=== PATIENT | male | born 1980 | race Caucasian/White ===

== ENCOUNTER 2019-04-17 20:00 | Emergency (ER) | payer OTHER ==
[2019-04-17 20:46] LABS: ANION GAP 14.8 mmol/L (5-15); CHLORIDE,CL 100 mmol/L (98-115); SODIUM,NA 139 mmol/L (136-145)
[2019-04-17] MEDS ORDERED: Sodium Chloride 0.9% 1,000 ML IV ONE (20:50)
--- NOTE | 2019-04-17 20:57 | EDM.PDOC ---
ED HPI GENERAL MEDICAL PROBLEM - General Chief Complaint: Abdominal Pain Stated Complaint: PAIN Time Seen by Provider: 04/17/19 20:49 Source of Information: Reports: Patient, Significant Other History Limitations: Reports: No Limitations - History of Present Illness INITIAL COMMENTS - FREE TEXT/NARRATIVE: Patient presents with LLQ pain that started about 10 hours ago while in classes for [employer]. It began abruptly with sharp pain and an urge to defecate. He had a BM which somewhat relieved the pain. He had the same thing about 8 times through the day each time with the urge to defecate and the feeling that he might soil himself with diarrhea but stool was always well formed and no blood visible. The last BM was about 3 hours ago when he arrived home from classes. He says the pain at its worst was 8-9/10 for 30-60 seconds about 10-11 times total through the day (usually with the urge to defecate) but then subsided to about 3. He denies any similar symptoms in the past. Also denies any Crohn's, colitis, hernias or abdominal surgeries. Appetite was fairly good but a little decreased. He didn't eat breakfast but was hungry then. He was thirsty today but didn't drink enough; about 4 cups in all. Left Lower Abdomen Pain Score (Numeric/FACES): 3 - Related Data Allergies Allergy/AdvReac Type Severity Reaction Status Date / Time No Known Allergies Allergy Verified 04/17/19 20:08 Past Medical History - Past Health History Medical/Surgical History: Denies Medical/Surgical History - Past Surgical History Musculoskeletal Surgical History: Reports: Shoulder Surgery Social & Family History - Tobacco Use Smoking Status *Q: Never Smoker Second Hand Smoke Exposure: No - Caffeine Use Caffeine Use: Reports: Coffee, Energy Drinks, Soda - Recreational Drug Use Recreational Drug Use: No - Living Situation & Occupation Living situation: Reports: , with Family Occupation: Employed ED ROS GENERAL - Review of Systems Review Of Systems: See Below Constitutional: Denies: Fever, Chills, Weakness HEENT: Denies: Throat Pain, Vision Change Respiratory: Reports: Cough (recovering from a cough/cold). Denies: Shortness of Breath Cardiovascular: Denies: Chest Pain, Lightheadedness, Syncope GI/Abdominal: Reports: Abdominal Pain, Nausea (a couple times when he stood up) . Denies: Constipation, Diarrhea, Vomiting : Denies: Dysuria, Flank Pain, Pain Musculoskeletal: Reports: Foot Pain (plantar fasciitis). Denies: Neck Pain, Shoulder Pain, Arm Pain Skin: Denies: Cyanosis, Jaundice, Mottled, Pallor, Diaphoresis Neurological: Denies: Confusion, Dizziness, Headache, Seizure, Syncope, Trouble Speaking, Difficulty Walking Psychiatric: Denies: Agitation, Anxiety, Confusion ED EXAM, GI/ABD - Physical Exam Exam: See Below Exam Limited By: No Limitations General Appearance: Alert, WD/WN, No Apparent Distress Eyes: Bilateral: Normal Appearance, EOMI Ears: Normal External Exam, Hearing Grossly Normal Nose: Normal Inspection, No Blood Throat/Mouth: Normal Inspection, Normal Lips, Normal Voice, No Airway Compromise Head: Atraumatic, Normocephalic Neck: Normal Inspection, Full Range of Motion Respiratory/Chest: No Respiratory Distress, Lungs Clear, Normal Breath Sounds, No Accessory Muscle Use Cardiovascular: Regular Rate, Rhythm, No Murmur GI/Abdominal Exam: Soft, No Organomegaly, No Distention, No Abnormal Bruit, Tender (LLQ quite tender to light palpation). No: Hernia, Mass Back Exam: Normal Inspection, Full Range of Motion. No: CVA Tenderness (L), CVA Tenderness (R) Extremities: Normal Inspection, Normal Range of Motion Neurological: Alert, Oriented, Normal Cognition, No Motor/Sensory Deficits Psychiatric: Normal Affect, Normal Mood Skin Exam: Warm, Dry, Intact, Normal Color, No Rash Course - Vital Signs Last Recorded V/S: Last Vital Signs Temp 98.3 F 04/17/19 20:00 Pulse 80 04/17/19 22:21 Resp 18 04/17/19 22:21 BP 129/64 04/17/19 22:21 Pulse Ox 96 04/17/19 22:21 - Orders/Labs/Meds Orders: Active Orders 24 hr Category Date Time Status Abdomen Pelvis w Cont [CT] Stat Exams 04/17/19 20:50 Ordered Labs: Laboratory Tests 04/17/19 04/17/19 04/17/19 Range/Units 20:15 20:15 21:10 WBC 13.65 H (5.00-10.00) 10^3/uL RBC 4.80 (4.50-6.00) 10^6/uL Hgb 14.5 (13.0-17.0) g/dL Hct 41.8 (40.0-52.0) % MCV 87.1 (82.0-92.0) fL MCH 30.2 (27.0-31.0) pg MCHC 34.7 (32.0-36.0) g/dL RDW 12.2 (11.5-14.5) % Plt Count 290 (150-400) 10^3/uL MPV 9.4 (7.4-10.4) fL Immature Gran % (Auto) 0.1 (0.0-5.0) % Neut % (Auto) 72.6 H (50.0-70.0) % Lymph % (Auto) 18.3 L (20.0-40.0) % [place] % (Auto) 7.5 (2.0-8.0) % Eos % (Auto) 1.2 (1.0-3.0) % Baso % (Auto) 0.3 (0.0-1.0) % Immature Gran # (Auto) 0.02 (0.00-0.50) 10^3/uL Neut # (Auto) 9.90 H (2.50-7.00) 10^3/uL Lymph # (Auto) 2.50 (1.00-4.00) 10^3/uL [place] # (Auto) 1.03 H (0.10-0.80) 10^3/uL Eos # (Auto) 0.16 (0.10-0.30) 10^3/uL Baso # (Auto) 0.04 (0.00-0.10) 10^3/uL Sodium 139 (136-145) mmol/L Potassium 3.7 (3.3-5.3) mmol/L Chloride 100 (98-115) mmol/L Carbon Dioxide 27.9 (21.0-32.0) mmol/L Anion Gap 14.8 (5-15) mmol/L BUN 16 (6-25) mg/dL Creatinine 1.22 H (0.51-1.17) mg/dL Est Cr Clr Drug Dosing 96.39 mL/min Estimated GFR (MDRD) > 60 mL/min Glucose 87 (75 - 99) mg/dL Calcium 8.9 (8.7-10.3) mg/dL Total Bilirubin 0.8 (0.2-1.0) mg/dL AST 18 (15-37) U/L ALT 36 (12-78) U/L Alkaline Phosphatase 60 (46-116) IU/L Total Protein 7.7 (6.4-8.2) g/dL Albumin 4.07 (3.00-4.80) g/dL Lipase 163 (73-393) U/L Specimen Type Urincc Urine Color Yellow (YELLOW) Urine Appearance Clear (CLEAR) Urine pH 5.5 (5.0-9.0) Ur Specific [place] 1.025 (1.005-1.030) Urine Protein Negative (NEGATIVE) mg/dL Urine Glucose (UA) Negative (NEGATIVE) mg/dL Urine Ketones Negative (NEGATIVE) mg/dL Urine Occult Blood Trace-intact H (NEGATIVE) Urine Nitrite Negative (NEGATIVE) Urine Bilirubin Negative (NEGATIVE) Urine Urobilinogen 0.2 (0.2-1.0) E.U./dL Ur Leukocyte Esterase Negative (NEGATIVE) Urine RBC 0-5 (0-5) /HPF Urine WBC 0-5 (0-5) /HPF Urine Bacteria Not seen (NONE TO FEW) /HPF Meds: Medications Discontinued Medications Generic Name Dose Route Start Last Admin Trade Name Freq PRN Reason Stop Dose Admin Ciprofloxacin 500 mg 04/17/19 22:31 Ciprofloxacin Hcl PO 04/17/19 22:32 ONETIME ONE Sodium Chloride 1,000 mls @ 999 mls/hr 04/17/19 20:50 04/17/19 20:56 Normal Saline IV 04/17/19 21:50 999 mls/hr .BOLUS ONE Administration Metronidazole 500 mg 04/17/19 22:31 Flagyl PO 04/17/19 22:32 ONETIME ONE - Re-Assessments/Exams Free Text/Narrative Re-Assessment/Exam: 04/17/19 22:44 WBC is 13.[address] shows acute diverticulitis in the distal colon without abscess. I discussed case with Dr. Clifton and we will treat outpatient. Discussed findings and treatment plan with patient and he is given first doses of Cipro and Flagyl prior to departure to home in stable condition. He also had a liter of IV saline while in ER. He is feeling better now. He tells me that his father has had diverticulitis. Departure - Departure Time of Disposition: 22:32 Disposition: Home, Self-Care 01 Condition: Good Clinical Impression: Acute diverticulitis - Discharge Information Instructions: Diverticulitis, [id number] Referrals: Jack Elkins PA-C [Primary Care Provider] - Forms: ED Department Discharge Additional Instructions: 1. Drink 12 cups of water daily. 2. For the next 2 days eat/drink only clear liquids, soups, jellos, etc. 3. You can use Tylenol or Ibuprofen (or Aleve) as directed for pain control. 4. Follow up with your PCP in two days for recheck. 5. You should get evaluated further for this with a colonoscopy in 6-8 weeks. Sepsis Event Note - Evaluation Sepsis Screening Result: No Definite Risk - Focused Exam Vital Signs: Vital Signs Temp Pulse Resp BP Pulse Ox 04/17/19 22:21 80 18 129/64 96 04/17/19 21:00 86 128/70 04/17/19 20:00 98.3 F 88 18 130/68 98 Date Exam was Performed: 04/17/19 Time Exam was Performed: 22:40 - My Orders Last 24 Hours: My Active Orders 04/17/19 20:50 Abdomen Pelvis w Cont [CT] Stat - Assessment/Plan Last 24 Hours: My Active Orders 04/17/19 20:50 Abdomen Pelvis w Cont [CT] Stat
[2019-04-17] MEDS ORDERED: metroNIDAZOLE 500 MG Tab PO ONE (22:31)
[2019-04-17] MEDS ORDERED: Ciprofloxacin 500 MG Tab PO ONE (22:31)
[2019-04-18] MEDS ORDERED: Iopamidol 755 Mg/ML 100 ML Bottle IV ONE (08:53)
[2019-04-18] MEDS ORDERED: Sodium Chloride 0.9% 50 ML IV SCH (09:00)
--- NOTE | 2019-04-18 09:22 | CT ---
[id number] CT/CT Abdomen Pelvis W IV EXAM: CT Abdomen Pelvis W IV CLINICAL DATA: LLQ PAIN COMPARISON STUDY: None. FINDINGS: Lung bases are clear. Liver, spleen, gallbladder, pancreas, adrenal glands, and kidneys are unremarkable. Colonic diverticulosis with an area of acute diverticulitis at the junction of the descending and sigmoid segments in the left lower quadrant. There is fat stranding in the pericolonic fat. No drainable fluid collection to suggest abscess. No pneumoperitoneum. No small bowel obstruction or inflammation. Appendix is normal. Trace amount of free fluid the pelvis. No drainable fluid collection in the pelvis. Scattered changes of spondylosis the spine. No fracture or osseous lesion. IMPRESSION: Acute uncomplicated diverticulitis at the junction of the descending and sigmoid segments in the left lower quadrant. Jack Kelsey MD 04/18/19 0921 Thank you for allowing us to participate in the care of your patient.
== END 2019-04-17 22:50 | disposition home or self-care (01) ==
LOC: KA.ED 20:00
DX: K57.32 Diverticulitis of large intestine without perforation or abscess without bleeding (principal)
CPT/HCPCS: 36415; 74177; 80053; 81001; 83690; 85025; 96360; 96361; 99284; A9270; J7030; J7050; Q9967